=== PATIENT | male | born 2000 | race American Indian/Alaskan Native ===

== ENCOUNTER 2018-09-19 10:38 | Emergency (ER) | payer BC, MEDICAID ==
[~2018-09-19] VITALS: Ht 177.8 cm; Wt 68.0 kg
[2018-09-19 10:41] VITALS: BP 123/76
[2018-09-19] MEDS ORDERED: methylPREDNISolone sod succ 125mg/2ml vial IM ONE (10:55)
[2018-09-19] MEDS ORDERED: PRED20TA PO (11:03)
== END 2018-09-19 11:13 | disposition home or self-care (01) ==
LOC: ER 10:39
DX: T78.40XA Allergy, unspecified, initial encounter (principal); J02.9 Acute pharyngitis, unspecified; Z79.899 Other long term (current) drug therapy; X58.XXXA Exposure to other specified factors, initial encounter; Y93.89 Activity, other specified; Y92.89 Other specified places as the place of occurrence of the external cause; Y99.8 Other external cause status
CPT/HCPCS: 96372; 99283; J2930

== ENCOUNTER 2018-12-02 23:59 | Emergency (ER) | payer MEDICAID ==
[~2018-12-02] VITALS: Ht 177.8 cm; Wt 66.4 kg
[2018-12-03 00:02] VITALS: BP 120/70
[2018-12-03] MEDS ORDERED: acetaminophen 325mg tablet PO ONE (02:10)
== END 2018-12-03 02:24 | disposition home or self-care (01) ==
LOC: ER 23:59
DX: S60.221A Contusion of right hand, initial encounter (principal); W22.01XA Walked into wall, initial encounter; Y93.89 Activity, other specified; Y92.89 Other specified places as the place of occurrence of the external cause; Y99.8 Other external cause status
CPT/HCPCS: 29125; 73130; 99283

== ENCOUNTER 2019-01-24 21:15 | Emergency (ER) | payer MEDICAID ==
[~2019-01-24] VITALS: Ht 177.8 cm; Wt 70.0 kg
[2019-01-24 21:17] VITALS: BP 132/72
[2019-01-24] MEDS ORDERED: LIDOcaine 1% w/EPI 1:200,000 injection 10mL vial IM ONE (21:40)
[2019-01-24] MEDS ORDERED: LIDOcaine 1% w/epiNEPHrine 1:200,000 30ml vial IM ONE (21:40)
== END 2019-01-24 22:35 | disposition home or self-care (01) ==
LOC: ER 21:17
DX: S91.311A Laceration without foreign body, right foot, initial encounter (principal); F10.99 Alcohol use, unspecified with unspecified alcohol-induced disorder; W25.XXXA Contact with sharp glass, initial encounter; Y93.89 Activity, other specified; Y92.89 Other specified places as the place of occurrence of the external cause; Y99.8 Other external cause status; Y90.9 Presence of alcohol in blood, level not specified
CPT/HCPCS: 12001; 99283

== ENCOUNTER 2019-02-02 23:51 | Emergency (ER) | payer MEDICAID ==
[~2019-02-02] VITALS: Ht 177.8 cm; Wt 77.3 kg
[2019-02-03] MEDS ORDERED: diphenhydrAMINE 50 mg/ml inj IM ONE (00:10)
[2019-02-03] MEDS ORDERED: cloNIDine 0.1 mg tablet PO ONE (00:10)
[2019-02-03] MEDS ORDERED: LORazepam 1 MG tablet PO ONE (00:10)
[2019-02-03] MEDS ORDERED: metoclopramide 5 mg/ml inj IM ONE (00:10)
--- NOTE | 2019-02-03 00:21 | NUR ---
PT EN ROUTE TO RADIOLOGY VIA W/C.
[2019-02-03 01:26] VITALS: BP 120/71
== END 2019-02-03 01:31 | disposition home or self-care (01) ==
LOC: ER 23:51
DX: R51 Headache (principal); M54.2 Cervicalgia; H53.8 Other visual disturbances; F10.99 Alcohol use, unspecified with unspecified alcohol-induced disorder; Y90.9 Presence of alcohol in blood, level not specified
CPT/HCPCS: 70450; 96372; 99284; J1200; J2765

== ENCOUNTER 2019-02-04 16:57 | Emergency (ER) | payer MEDICAID ==
[~2019-02-04] VITALS: Ht 177.8 cm; Wt 77.3 kg
[2019-02-04 17:00] VITALS: BP 123/73
== END 2019-02-04 18:19 | disposition home or self-care (01) ==
LOC: ER 16:57
DX: S91.311D Laceration without foreign body, right foot, subsequent encounter (principal); F10.99 Alcohol use, unspecified with unspecified alcohol-induced disorder; X58.XXXD Exposure to other specified factors, subsequent encounter; Y90.9 Presence of alcohol in blood, level not specified
CPT/HCPCS: 99281

== ENCOUNTER 2019-02-08 10:22 | Emergency (ER) | payer MEDICAID ==
[~2019-02-08] VITALS: Ht 177.8 cm; Wt 213.6 kg
[2019-02-08 10:46] VITALS: BP 121/63
[2019-02-08] MEDS ORDERED: proCHLORperazine 10 MG/2 ml inj IM ONE (11:50)
[2019-02-08] MEDS ORDERED: ketorolac tromethamine 15mg/ml inj. IM ONE (11:50)
[2019-02-08] MEDS ORDERED: diphenhydrAMINE 25mg capsule PO ONE (11:50)
--- NOTE | 2019-02-08 12:10 | NUR ---
TORADOL 15MG IM GIVEN IN THE RIGHT ARM, INSTEAD OF RIGHT GLUTEAL. COMPAZINE 10MG IM GIVEN IN LEFT ARM INSTEAD OF RIGHT GLUTEAL, PER PTS REQUEST.
== END 2019-02-08 12:18 | disposition home or self-care (01) ==
LOC: ER 10:22
DX: R51 Headache (principal); M54.2 Cervicalgia; F10.99 Alcohol use, unspecified with unspecified alcohol-induced disorder; Y90.9 Presence of alcohol in blood, level not specified
CPT/HCPCS: 96372; 99283; J0780; J1885; Q0163

== ENCOUNTER 2021-12-19 10:38 | Emergency (ER) | payer MEDICAID ==
[~2021-12-19] VITALS: Ht 177.8 cm; Wt 80.0 kg
[2021-12-19 10:41] VITALS: BP 136/79
[2021-12-19] MEDS ORDERED: ibuprofen tablet 400 MG TABLET PO ONE (11:30)
== END 2021-12-19 11:44 | disposition home or self-care (01) ==
LOC: ER 10:39
DX: S46.911A Strain of unspecified muscle, fascia and tendon at shoulder and upper arm level, right arm, initial encounter (principal); V29.99XA Rider (driver) (passenger) of other motorcycle injured in unspecified traffic accident, initial encounter; Y93.89 Activity, other specified; Y92.89 Other specified places as the place of occurrence of the external cause; Y99.8 Other external cause status
CPT/HCPCS: 99282

== ENCOUNTER 2024-03-13 06:54 | Emergency (ER) | payer MEDICAID ==
[~2024-03-13] VITALS: Ht 177.8 cm; Wt 82.3 kg
[2024-03-13 06:58] VITALS: PULSE 103
[2024-03-13] MEDS ORDERED: AMOX-101 PO (07:15)
[2024-03-13] MEDS: dexamethasone sod phosphate 10mg/ml inj PO STA (07:22)
[2024-03-13] MEDS: amoxicillin 250mg capsule PO ONE (07:22)
[2024-03-13 07:27] VITALS: BP 122/76; RESP 16; TEMP 98.8; O2SAT 98
== END 2024-03-13 07:31 | disposition home or self-care (01) ==
LOC: ER 06:54
DX: J02.9 Acute pharyngitis, unspecified (principal); F10.90 Alcohol use, unspecified, uncomplicated; Y90.9 Presence of alcohol in blood, level not specified
CPT/HCPCS: 99283; J1100

== ENCOUNTER 2024-12-04 22:24 | Emergency (ER) | payer MEDICAID ==
[~2024-12-04] VITALS: Ht 177.8 cm; Wt 88.1 kg
[2024-12-04 22:27] VITALS: BP 109/72; PULSE 102; RESP 16; TEMP 98.1; O2SAT 98
== END 2024-12-05 01:02 | disposition left against medical advice (07) ==
LOC: ER 22:24
DX: R10.9 Unspecified abdominal pain (principal)
CPT/HCPCS: 99281